=== PATIENT | male | born 1990 | race Asian ===

== ENCOUNTER → 2024-08-26 | Outpatient (CLI) | payer SELFPAY ==
[2024-08-26 15:40] LABS: THYROGLOBULIN ANTIBODY < 15.0 U/ML (<60.0)
[2024-08-26 15:41] LABS: FREE T3 3.7 PG/ML (2.3-4.2); FREE T4 1.31 NG/DL (0.89-1.76); THYROID PEROXIDASE ANTIBODY 33 U/ML (<60.0)
== END ==
LOC: M LAB 14:02
PROVIDERS: ATTEND Physician Assistant
DX: E04.1 Nontoxic single thyroid nodule (principal)